=== PATIENT | female | born 2000 | race Two or more races ===

== ENCOUNTER 2019-02-19 16:54 | Emergency (ER) | payer OTHER ==
[~2019-02-19] VITALS: Ht 162.6 cm; Wt 61.2 kg
--- NOTE | 2019-02-19 17:29 | Emergency Room Report ---
History of Present Illness General Chief Complaint: Vaginal Source: Patient Present Illness HPI 18-year-old female patient presents the ER complaining of vaginal bleeding since yesterday. Reports passage of clots with bleeding. Reports suprapubic and left lower quadrant pain during this time. Also complains of left flank pain. Reports history of bilateral ovarian cyst. States had previous bleeding symptoms in the past, states 2 months ago had her period for 1 full month, states that she went to the ER and had ultrasound performed, states they found bilateral ovarian cyst. Reports the bleeding stopped about 2 weeks ago however began again yesterday. States abdominal pain began during that time. Reports has not followed up with [facility] ADMINISTRATOR since that time. Reports dizziness and vomiting. Denies hematemesis. Denies concern, states that she has Implanon in her arm, denies recent sexual activity. Denies dysuria. Denies syncopal episode. Denies other aggravating or relieving factors. 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 Allergies: Coded Allergies: CODEINE (Verified Allergy, Severe, Anaphylaxis, 02/19/19) Patient History Past Medical History: see triage record Last Menstrual Period: now Now: No Reviewed Nursing Documentation: PMH: Agreed; PSxH: Agreed Nursing Documentation-PMH Past Medical History: No History, Except For Review of Systems All Other Systems: negative except mentioned in HPI Physical Exam Vital Signs Date Time Temp Pulse Resp B/P (MAP) Pulse Ox O2 Delivery O2 Flow Rate FiO2 02/19/19 17:05 98.8 101 20 120/72 98 Room Air Sp02 EP Interpretation: reviewed, normal General Appearance: well appearing, no apparent distress, alert, GCS 15, non- toxic Head: normocephalic, atraumatic Eyes: bilateral eye normal inspection, bilateral eye PERRL ENT: hearing grossly normal, normal pharynx, no angioedema, normal voice, uvula midline, moist mucus membranes Neck: full range of motion, no meningismus, no bony tend Respiratory: lungs clear, normal breath sounds, no rhonchi, no respiratory distress, no accessory muscle use, no wheezing, speaking full sentences Cardiovascular #1: regular rate, rhythm, no edema Gastrointestinal: normal bowel sounds, non tender, soft, no mass, non-distended , no guarding, no rebound, other - Subjective suprapubic and left lower quadrant pain, negative obturator, negative Rovsing, negative heel strike Genitourinary: no CVA tenderness, other - Subjective left flank tenderness, deferred Musculoskeletal: back normal, digits/nails normal, gait/station normal, normal range of motion, non-tender Neurologic: alert, oriented x3, responsive, motor strength/tone normal, sensory intact Psychiatric: mood/affect normal Skin: no rash Medical Decision Making PA Attestation Dr. Mercer is my supervising Physician whom patient management has been discussed with. Diagnostic Impression: Primary Impression: Dysfunctional uterine bleeding Additional Impression: Hepatic steatosis ER Course Pt presents to ED c/o vaginal bleeding since yesterday. DDX considered but are not limited to threatened , incomplete , complete , ectopic, UTI, septic , fibroids, dysfunctional uterine bleeding, STI, ovarian torsion, anemia, hydronephrosis. Negative Rovsing, no fever, low suspicion for appendicitis, does not require CT at this time. VITAL SIGNS are WNL, patient is afebrile Ordered CBC, CMP, Type and Screen, UA, UCG, bHCG, IV NS and pelvic US. ER COURSE: CBC and CMP unremarkable other than elevation in LFTs, likely due to history of hepatitis C, no elevation of symptoms. Advised patient follow-up with GI specialist. Lipase within normal limits UA results negative nitrites, negative leukocyte esterase, low suspicion for infection, elevated RBCs likely due to vaginal bleeding. Urine negative. Blood type O+ Results discussed with patient. Abdominal ultrasound hepatic steatosis otherwise unremarkable, steatosis likely related to elevated LFTs and history of hepatitis C. Pelvic US unremarkable, no torsion, no masses, no fibroids. Discuss results with the patient. Provided patient with copy of results. Instructed patient to followup with PCP and discuss results of report with patient, discuss need for further treatment and referral. Patient resting comfortably, in no acute distress, nontoxic appearing. Patient reports pain symptoms improved since onset. F/u with OBGYN in 48 hours. Provided with contact information for [facility]ICE ADMINISTRATOR specialist Patient requesting to be discharged, nontoxic appearing in no acute distress. ER precautions given. DISCHARGE: At this time pt. is stable for d/c to home. At this time patient is resting comfortably, in no acute distress, nontoxic appearing, smiling and talking without difficulty. Will provide printed patient care instructions, and any necessary prescriptions. Patient instructed to follow with OBGYN for further treatment and referral as needed. Care plan and follow up instructions have been discussed with the patient prior to discharge. Patient reports understanding and agreement to treatment plan. Patient questions asked and answered. ER precautions given, patient instructed to return to ER immediately for any new or worsening of symptoms. - Please note that this Emergency Department Report was dictated using [employer] chef technology software, occasionally this can lead to erroneous entry secondary to interpretation by the dictation equipment. Labs Test 02/19/19 17:00 02/19/19 18:30 Urine Color Pale yellow Urine Appearance Clear Urine pH 7 (4.5-8.0) Urine Specific [place] 1.010 (1.005-1.035) Urine Protein 1+ (NEGATIVE) Urine Glucose (UA) Negative (NEGATIVE) Urine Ketones Negative (NEGATIVE) Urine Blood 5+ (NEGATIVE) Urine Nitrite Negative (NEGATIVE) Urine Bilirubin Negative (NEGATIVE) Urine Urobilinogen Normal MG/DL (0.0-1.0) Urine Leukocyte Esterase Negative (NEGATIVE) Urine RBC 5-10 /HPF (0 - 2) Urine WBC 0-2 /HPF (0 - 2) Urine Squamous Epithelial Cells Few /LPF (NONE/OCC) Urine Bacteria Few /HPF (NONE) Urine HCG, Qualitative Negative (NEGATIVE) White Blood Count 5.9 K/UL (4.8-10.8) Red Blood Count 4.64 M/UL (4.20-5.40) Hemoglobin 13.5 G/DL (12.0-16.0) Hematocrit 41.2 % (37.0-47.0) Mean Corpuscular Volume 89 FL (80-99) Mean Corpuscular Hemoglobin 29.1 PG (27.0-31.0) Mean Corpuscular Hemoglobin Concent 32.8 G/DL (32.0-36.0) Red Cell Distribution Width 12.4 % (11.6-14.8) Platelet Count 175 K/UL (150-450) Mean Platelet Volume 7.6 FL (6.5-10.1) Neutrophils (%) (Auto) 44.0 % (45.0-75.0) Lymphocytes (%) (Auto) 42.2 % (20.0-45.0) Monocytes (%) (Auto) 6.6 % (1.0-10.0) Eosinophils (%) (Auto) 5.4 % (0.0-3.0) Basophils (%) (Auto) 1.8 % (0.0-2.0) Sodium Level 141 MMOL/L (136-145) Potassium Level 3.9 MMOL/L (3.5-5.1) Chloride Level 105 MMOL/L (98-107) Carbon Dioxide Level 26 MMOL/L (21-32) Anion Gap 11 mmol/L (5-15) Blood Urea Nitrogen 10 mg/dL (7-18) Creatinine 0.8 MG/DL (0.55-1.30) Estimat Glomerular Filtration Rate > 60 mL/min (>60) Glucose Level 75 MG/DL (74-106) Calcium Level 9.7 MG/DL (8.5-10.1) Total Bilirubin 0.6 MG/DL (0.2-1.0) Aspartate Amino Transf (AST/SGOT) 77 U/L (15-37) Alanine Aminotransferase (ALT/SGPT) 157 U/L (12-78) Alkaline Phosphatase 56 U/L (46-116) Total Protein 7.9 G/DL (6.4-8.2) Albumin 4.1 G/DL (3.4-5.0) Globulin 3.8 g/dL Albumin/Globulin Ratio 1.1 (1.0-2.7) Lipase 142 U/L (73-393) CT/MRI/US Diagnostic Results CT/MRI/US Diagnostic Results #1: Imaging Test Ordered: Pelvic ultrasound Impression Nonspecific pelvic free fluid is likely physiologic. No sonographic findings to suggest ovarian torsion. Uterus and endometrium are unremarkable. No adnexal masses. CT/MRI/US Diagnostic Results #2: Imaging Test Ordered: Abdominal ultrasound Impression No gallstones, gallbladder wall thickening, pericholecystic fluid, or biliary dilatation. Increased hepatic echogenicity is suggestive of steatosis. Spleen and kidneys are unremarkable. No free fluid. Last Vital Signs Date Time Temp Pulse Resp B/P (MAP) Pulse Ox O2 Delivery O2 Flow Rate FiO2 02/19/19 17:05 98.8 101 20 120/72 98 Room Air Status: improved Disposition: HOME, SELF-CARE Condition: Stable Patient Instructions: Dysfunctional Uterine Bleeding, Hepatitis C, Ovarian Cyst , [id number] Additional Instructions: Followup with OBGYN in 1-2 days. Follow-up with GI specialist to discuss hepatic steatosis and history of hepatitis C. Take medications as directed. Take Tylenol or Motrin for pain. Patient questions asked and answered. ER precautions given, patient instructed to return to ER immediately for any new or worsening of symptoms including but not limited to chest pain, SOB, intractable vomiting, profuse vaginal bleeding, abdominal pain. Blood type O positive Suleiman Acevedo Feb 19, 2019 17:29
[2019-02-19] MEDS ORDERED: Ketorolac 30mg Inj IV ONE (17:30)
[2019-02-19 17:44] VITALS: BP 120/72
[2019-02-19 18:39] LABS: APPEARANCE,URINE CLEAR; BILIRUBIN, URINE NEGATIVE (NEGATIVE); COLOR,URINE PALE YELLOW; GLUCOSE, URINE (UA) NEGATIVE (NEGATIVE); KETONES,URINE NEGATIVE (NEGATIVE); LEUKOCYTE ESTERASE ,URINE NEGATIVE (NEGATIVE); NITRITE,URINE NEGATIVE (NEGATIVE); PH,URINE 7 (4.5-8.0); PROTEIN,URINE 1+ (NEGATIVE); UROBILINOGEN,URINE NORMAL MG/DL (0.0-1.0)
[2019-02-19 19:09] LABS: BASOPHILS % (AUTO) 1.8 % (0.0-2.0); EOSINOPHILS % (AUTO) 5.4 % (0.0-3.0); HEMATOCRIT 41.2 % (37.0-47.0); HEMOGLOBIN 13.5 G/DL (12.0-16.0); LYMPHOCYTES % (AUTO) 42.2 % (20.0-45.0); MEAN CORPUSCULAR VOLUME 89 FL (80-99); MONOCYTES % (AUTO) 6.6 % (1.0-10.0); PLATELET COUNT 175 K/UL (150-450); RED BLOOD COUNT 4.64 M/UL (4.20-5.40); RED CELL DISTRIBUTION WIDTH 12.4 % (11.6-14.8); WHITE BLOOD COUNT 5.9 K/UL (4.8-10.8)
[2019-02-19 19:20] LABS: ANION GAP 11 mmol/L (5-15); BLOOD UREA NITROGEN 10 mg/dL (7-18); CALCIUM 9.7 MG/DL (8.5-10.1); CARBON DIOXIDE 26 MMOL/L (21-32); CHLORIDE 105 MMOL/L (98-107); CREATININE 0.8 MG/DL (0.55-1.30); POTASSIUM 3.9 MMOL/L (3.5-5.1); SODIUM 141 MMOL/L (136-145)
[2019-02-19 19:24] LABS: ALANINE AMINOTRANSFERASE 157 U/L (12-78); ALBUMIN 4.1 G/DL (3.4-5.0); ALBUMIN/GLOBULIN RATIO 1.1 (1.0-2.7); ALKALINE PHOSPHATASE 56 U/L (46-116); ASPARTATE AMINO TRANSFERASE 77 U/L (15-37); BILIRUBIN,TOTAL 0.6 MG/DL (0.2-1.0)
[2019-02-19 19:54] VITALS: BP 120/72
--- NOTE | 2019-02-20 12:41 | Diagnostic Imaging Report ---
Indication:Lower abdominal and pelvic pain Technique: Grayscale and duplex Doppler imaging of the pelvis performed utilizing a transabdominal and endovaginal scan. Comparison: None Findings: The size, contour, and configuration of the uterus is within normal limits. The endometrium is uniformly echogenic and normal in thickness. Endometrium is 6 mm The ovaries appear normal bilaterally with good dopplerable blood flow. There is a dominant left ovarian cyst measuring 2 cm. Mild septation noted within the cyst. There is mild free fluid within the pelvis IMPRESSION: No acute findings. 2 cm mildly septated left ovarian cyst. Recommend six-week follow-up.
--- NOTE | 2019-02-20 12:45 | Diagnostic Imaging Report ---
Indication:Abdominal pain Technique: Grayscale and duplex Doppler imaging of the abdomen performed. Comparison: None Findings: The liver is unremarkable. The gallbladder is unremarkable. The demonstrated part of the pancreas, aorta and IVC show no abnormalities. Both kidneys appear unremarkable. The spleen is normal in size. There is no biliary ductal dilatation identified. Doppler evaluation of the main portal vein shows patency. There is no ascites. No hydronephrosis seen. CBD is 2 mm. Impression: No acute findings.
== END 2019-02-19 19:54 | disposition home or self-care (01) ==
LOC: EMR 17:43
DX: N93.8 Other specified abnormal uterine and vaginal bleeding (principal); K76.0 Fatty (change of) liver, not elsewhere classified; Z88.6 Allergy status to analgesic agent; R10.32 Left lower quadrant pain; R42 Dizziness and giddiness; R11.10 Vomiting, unspecified; Z86.19 Personal history of other infectious and parasitic diseases; R79.89 Other specified abnormal findings of blood chemistry
CPT/HCPCS: 36415; 76700; 76830; 76856; 80053; 81003; 81025; 83690; 85025; 86850; 86900; 86901; 96361; 96374; 96375; 99284; J1885; J2405

== ENCOUNTER 2019-11-22 12:51 | Emergency (ER) | payer OTHER ==
[~2019-11-22] VITALS: Ht 162.6 cm; Wt 47.6 kg
[~2019-11-22 12:51] MED LIST: DEPAKOTE250 MG PO
--- NOTE | 2019-11-22 13:00 | NUR ---
ED Nurse Note: Patient walked into ED from home c/o left sided headache since this morning and migraine. patient reports hx epilepsy and seizure disorders. patient reports she had seizure this morning. patient is alert awake x4 ambulatory, breathing unlabored and even, speaking in full sentences.
--- NOTE | 2019-11-22 13:02 | NUR ---
ED Nurse Note: seizure precaution applied, patient on a hospital gown and on a cardiac care unit nurse.
--- NOTE | 2019-11-22 13:08 | NUR ---
HAND-OFF: Report given to RYAN RAMIREZ. endorsed that patient just started to develop hives on her hands and chest.
[2019-11-22 13:10] VITALS: BP 109/70
[2019-11-22] MEDS ORDERED: Metoclopramide 10mg/2ml Inj IVP ONE (13:30)
[2019-11-22] MEDS ORDERED: DiphenhydrAMINE 50mg/ml Inj IVP ONE (13:30)
--- NOTE | 2019-11-22 13:48 | Emergency Room Report ---
History of Present Illness General Chief Complaint: Seizure Source: Patient Present Illness HPI Patient presents with complaints of seizure activity Reports that she was here last night [place] that she was not treated the correct way or appropriately And reports that this morning had another breakthrough seizure patient reports having history of epilepsy is taking Keppra twice a day That has not changed recently Patient complains of headache and back pain denies any fevers or chills denies any rash denies any focal weakness Allergies: Coded Allergies: CODEINE (Verified Allergy, Severe, Anaphylaxis, 02/19/19) ONDANSETRON (Verified Allergy, Unknown, 11/22/19) Patient History Past Medical History: see triage record Reviewed Nursing Documentation: PMH: Agreed; PSxH: Agreed Nursing Documentation-PMH Past Medical History: No History, Except For Hx Cardiac Problems: Yes - EPILEPSY Review of Systems All Other Systems: negative except mentioned in HPI Physical Exam Vital Signs Date Time Temp Pulse Resp B/P (MAP) Pulse Ox O2 Delivery O2 Flow Rate FiO2 11/22/19 12:55 98.1 100 16 102/68 (79) 99 Room Air Sp02 EP Interpretation: reviewed, normal General Appearance: well appearing, no apparent distress Head: normocephalic, atraumatic Eyes: bilateral eye PERRL, bilateral eye EOMI ENT: hearing grossly normal, normal pharynx, TMs + canals normal, uvula midline Neck: full range of motion, supple, no meningismus, no bony tend Respiratory: lungs clear, normal breath sounds, no rhonchi, no respiratory distress, no retraction, no accessory muscle use Cardiovascular #1: normal peripheral pulses, regular rate, rhythm, no edema, no gallop, no JVD, no murmur Gastrointestinal: normal bowel sounds, non tender, soft, no mass, no organomegaly, non-distended, no guarding, no hernia, no pulsatile mass, no rebound Genitourinary: no CVA tenderness Musculoskeletal: normal inspection Neurologic: motor strength/tone normal, blast furnace tender III-XII nml as tested, oriented x3 , sensory intact, responsive Psychiatric: mood/affect normal Skin: no rash Lymphatic: normal inspection, no adenopathy Medical Decision Making Diagnostic Impression: Primary Impression: Seizure disorder Additional Impression: Epileptic seizure, generalized ER Course Given the patient's history and presentation multiple differentials and consideration including but not limited to neurological, neurosurgical, metabolic, infectious process Patient did have CT imaging earlier and at this time is nonfocal therefore this was not repeated However blood work is obtained CBC and electrolytes all within normal limits patient remains asymptomatic and appropriate throughout her stay feels improved with the medications was complaining of mild headache off and on And at this time will have conservative outpatient trial Labs Test 11/22/19 13:43 11/22/19 14:00 White Blood Count 6.5 K/UL (4.8-10.8) Red Blood Count 4.85 M/UL (4.20-5.40) Hemoglobin 13.4 G/DL (12.0-16.0) Hematocrit 41.0 % (37.0-47.0) Mean Corpuscular Volume 85 FL (80-99) Mean Corpuscular Hemoglobin 27.7 PG (27.0-31.0) Mean Corpuscular Hemoglobin Concent 32.7 G/DL (32.0-36.0) Red Cell Distribution Width 12.7 % (11.6-14.8) Platelet Count 147 K/UL (150-450) Mean Platelet Volume 8.1 FL (6.5-10.1) Neutrophils (%) (Auto) 50.9 % (45.0-75.0) Lymphocytes (%) (Auto) 38.4 % (20.0-45.0) Monocytes (%) (Auto) 7.0 % (1.0-10.0) Eosinophils (%) (Auto) 2.6 % (0.0-3.0) Basophils (%) (Auto) 1.2 % (0.0-2.0) Sodium Level 142 MMOL/L (136-145) Potassium Level 4.4 MMOL/L (3.5-5.1) Chloride Level 109 MMOL/L (98-107) Carbon Dioxide Level 21 MMOL/L (21-32) Anion Gap 12 mmol/L (5-15) Blood Urea Nitrogen 15 mg/dL (7-18) Creatinine 0.7 MG/DL (0.55-1.30) Estimat Glomerular Filtration Rate > 60 mL/min (>60) Glucose Level 87 MG/DL (74-106) Calcium Level 9.3 MG/DL (8.5-10.1) Total Bilirubin 0.6 MG/DL (0.2-1.0) Aspartate Amino Transf (AST/SGOT) 22 U/L (15-37) Alanine Aminotransferase (ALT/SGPT) 44 U/L (12-78) Alkaline Phosphatase 58 U/L (46-116) Total Protein 7.8 G/DL (6.4-8.2) Albumin 3.9 G/DL (3.4-5.0) Globulin 3.9 g/dL Albumin/Globulin Ratio 1.0 (1.0-2.7) Valproic Acid (Depakene) Level < 3 MCG/ML (50-100) Urine Color Pale yellow Urine Appearance Clear Urine pH 6.5 (4.5-8.0) Urine Specific [place] 1.005 (1.005-1.035) Urine Protein Negative (NEGATIVE) Urine Glucose (UA) Negative (NEGATIVE) Urine Ketones Negative (NEGATIVE) Urine Blood Negative (NEGATIVE) Urine Nitrite Negative (NEGATIVE) Urine Bilirubin Negative (NEGATIVE) Urine Urobilinogen Normal MG/DL (0.0-1.0) Urine Leukocyte Esterase 1+ (NEGATIVE) Urine RBC 0 /HPF (0 - 2) Urine WBC 0-2 /HPF (0 - 2) Urine Squamous Epithelial Cells Occasional /LPF Urine Bacteria Occasional /HPF (NONE) Urine HCG, Qualitative Negative (NEGATIVE) Urine Opiates Screen Negative (NEGATIVE) Urine Barbiturates Screen Negative (NEGATIVE) Phencyclidine (PCP) Screen Negative (NEGATIVE) Urine Amphetamines Screen Negative (NEGATIVE) Urine Benzodiazepines Screen Negative (NEGATIVE) Urine Cocaine Screen Negative (NEGATIVE) Urine Marijuana (THC) Screen Positive (NEGATIVE) Rhythm Strip Diag. Results EP Interpretation: yes Rate: 88 Rhythm: NSR, no PVC's, no ectopy Last Vital Signs Date Time Temp Pulse Resp B/P (MAP) Pulse Ox O2 Delivery O2 Flow Rate FiO2 11/22/19 12:55 98.1 100 16 102/68 (79) 99 Room Air Status: improved Disposition: HOME, SELF-CARE Condition: Improved Scripts Acetamin/Butalbital/Caffeine* (FIORICET*) 1 Ea Tab 1 TAB ORAL Q8HR, #20 TAB 0 Refills Prov: Noemi Pacheco DO 11/22/19 Diphenhydramine Hcl* (BENADRYL*) 25 Mg Capsule 25 MG ORAL Q6H PRN for Itching, #30 CAP Prov: Noemi Pacheco DO 11/22/19 Additional Instructions: Patient is provided with the discharge instructions notified to follow up with primary doctor in the next 2-3 days otherwise return to the er with any worsening symptoms. Please note that this report is being documented using [employer] technology. This can lead to erroneous entry secondary to incorrect interpretation by the dictating instrument. Noemi Pacheco DO Nov 22, 2019 13:48
[2019-11-22] MEDS ORDERED: Ketorolac 30mg Inj IV ONE (14:00)
[2019-11-22 14:03] LABS: BASOPHILS % (AUTO) 1.2 % (0.0-2.0); EOSINOPHILS % (AUTO) 2.6 % (0.0-3.0); HEMOGLOBIN 13.4 G/DL (12.0-16.0); LYMPHOCYTES % (AUTO) 38.4 % (20.0-45.0); MEAN CORPUSCULAR VOLUME 85 FL (80-99); NEUTROPHILS % (AUTO) 50.9 % (45.0-75.0); PLATELET COUNT 147 K/UL (150-450); RED BLOOD COUNT 4.85 M/UL (4.20-5.40); RED CELL DISTRIBUTION WIDTH 12.7 % (11.6-14.8); WHITE BLOOD COUNT 6.5 K/UL (4.8-10.8)
--- NOTE | 2019-11-22 14:10 | NUR ---
ED Nurse Note: Initial acucheck blood taken from line redraw was 35 1400, but then finger stick read [address] Ndiaye aware.
[2019-11-22 14:18] LABS: ANION GAP 12 mmol/L (5-15); BLOOD UREA NITROGEN 15 mg/dL (7-18); CALCIUM 9.3 MG/DL (8.5-10.1); CARBON DIOXIDE 21 MMOL/L (21-32); CHLORIDE 109 MMOL/L (98-107); CREATININE 0.7 MG/DL (0.55-1.30); POTASSIUM 4.4 MMOL/L (3.5-5.1); SODIUM 142 MMOL/L (136-145)
[2019-11-22 14:23] LABS: ALANINE AMINOTRANSFERASE 44 U/L (12-78); ALBUMIN 3.9 G/DL (3.4-5.0); ALKALINE PHOSPHATASE 58 U/L (46-116); ASPARTATE AMINO TRANSFERASE 22 U/L (15-37); BILIRUBIN,TOTAL 0.6 MG/DL (0.2-1.0)
[2019-11-22 14:25] LABS: APPEARANCE,URINE CLEAR; BILIRUBIN, URINE NEGATIVE (NEGATIVE); COLOR,URINE PALE YELLOW; GLUCOSE, URINE (UA) NEGATIVE (NEGATIVE); KETONES,URINE NEGATIVE (NEGATIVE); LEUKOCYTE ESTERASE ,URINE 1+ (NEGATIVE); NITRITE,URINE NEGATIVE (NEGATIVE); PH,URINE 6.5 (4.5-8.0); PROTEIN,URINE NEGATIVE (NEGATIVE); UROBILINOGEN,URINE NORMAL MG/DL (0.0-1.0)
[2019-11-22] MEDS ORDERED: FIORICET1 EA ORAL (14:51)
[2019-11-22] MEDS ORDERED: BENADRYL25 MG ORAL (14:51)
[2019-11-22 15:08] VITALS: BP 115/70
== END 2019-11-22 15:08 | disposition home or self-care (01) ==
LOC: EMR 14:13
DX: G40.909 Epilepsy, unspecified, not intractable, without status epilepticus (principal); Z88.6 Allergy status to analgesic agent; R51 Headache; M54.9 Dorsalgia, unspecified
CPT/HCPCS: 36415; 80053; 80164; 80307; 81003; 81025; 82962; 85025; 93005; 96374; 96375; 99284; J1200; J1885; J2765; 99281